=== PATIENT | female | born 1945 | race Caucasian/White ===

== ENCOUNTER 2016-10-03 09:00 | Emergency (ER) | payer MEDICARE, OTHER ==
[~2016-10-03 09:00] MED LIST: ACETAMINOPHEN-O1 TAB PO; AMARYL2 MG PO; AORACILLIN B500 MG; BACTRIM DS 8001 TA1 PO; ETODOLAC500 MG PO; GLYBURIDE MICRON3 MG PO; HYDROCODONE BIT1 T11 PO; LEVOTHROID0.125 MG PO; LOZOL1.25 MG PO; NIASPAN500 MG PO; OMEPRAZOLE20 M1 PO; PYRIDIUM200 M1 PO; QUINAPRIL10 MG PO; WARFARIN SOD5 MG PO
[2016-10-03 09:26] LABS: BILIRUBIN NEGATIVE (NEGATIVE); BLOOD NEGATIVE (NEGATIVE); CLARITY CLOUDY (CLEAR); COLOR YELLOW (YELLOW); GLUCOSE NEGATIVE (NEGATIVE); KETONE TRACE (NEGATIVE); LEUKO ESTERASE 2+ (NEGATIVE); NITRITE NEGATIVE (NEGATIVE); PROTEIN TRACE (NEGATIVE); SPECIFIC GRAVITY 1.025 (1.005-1.030); UROBILINOGEN 0.2 E.U./dl (0.2-1.0)
[2016-10-03 09:26] LABS: BASO % 0.5 % (0.0-1.0); EOS # 0.2 10*3/uL (0.0-0.4); EOS % 2.9 % (1.0-4.0); HEMATOCRIT 46.1 % (37.0-47.0); HEMOGLOBIN 14.8 g/dl (12.0-16.0); LYMPH # 2.2 10*3/uL (1.3-4.4); LYMPH % 30.2 % (27.0-41.0); MEAN CELL VOLUME 98.7 fl (81.0-99.0); MEAN CORPUSCULAR HGB 31.7 pg (27.0-31.0); MEAN CORPUSCULAR HGB CONC 32.1 g/dl (33.0-37.0); MEAN PLATELET VOLUME 10.9 fl (9.6-12.3); MONO # 0.7 10*3/uL (0.1-1.0); MONO % 9.8 % (3.0-9.0); NEUT # 4.2 10*3/uL (2.3-7.9); NEUT % 56.3 % (47.0-73.0); PLATELET COUNT AUTOMATED 256 10*3/uL (130-400); RED BLOOD COUNT 4.67 10*6/uL (4.10-5.10); WHITE BLOOD COUNT 7.4 10*3/uL (4.8-10.8)
[2016-10-03 09:32] LABS: BACTERIA 2+; WBC 31-40 wbc/hpf (0-5)
[2016-10-03 09:33] LABS: MUCOUS 1+; URINE REFLEX COMMENT YES (NO)
[2016-10-03 09:41] LABS: ALBUMIN 3.5 gm/dl (3.1-4.5); ALKALINE PHOSPHATASE 120 U/L (45-117); BILIRUBIN, TOTAL 0.5 mg/dl (0.2-1.0); BUN 16 mg/dl (7-24); CARBON DIOXIDE 30 mmol/L (21-32); CHLORIDE 108 mmol/L (98-107); EST GLOM FILT AFRICAN AMERICAN > 60 ml/min; GLUCOSE 101 mg/dL (65-99); POTASSIUM 3.8 mmol/L (3.5-5.1); SGOT/AST 19 IU/L (3-35); SGPT/ALT 28 U/L (12-78); SODIUM 146 mmol/L (136-145)
[2016-10-03] MEDS ORDERED: PYRIDIUM200 M1 PO (11:43)
[2016-10-03] MEDS ORDERED: BACTRIM DS 8001 TA1 PO (11:43)
[2016-10-03] MEDS ORDERED: HYDROCODONE BIT1 T11 PO (11:43)
== END 2016-10-03 11:40 | disposition home or self-care (01) ==
LOC: ED 09:00
PROVIDERS: Emergency Medicine
DX: N39.0 Urinary tract infection, site not specified (principal); Z88.0 Allergy status to penicillin; Z79.899 Other long term (current) drug therapy

== ENCOUNTER → 2017-07-28 | Day surgery (SDC) | payer MEDICARE, OTHER ==
--- NOTE | ~2017-07-28 | O ---
[place], [place] OPERATIVE NOTE NAME: HAN DIAZ UNIT #: [id number] ROOM: DOCTOR: KENRICK GUADARRAMA MD BIRTHDATE: [birth year] DOS: INDICATIONS: This is a 71-year-old patient who presented with reflux, dyspepsia, dysphagia, sensation of solid food distress in the upper pharynx area. ALLERGIES: No known medication. FAMILY HISTORY: Noncontributory. PAST SURGICAL HISTORY: Hysterectomy, mastectomy on right side, cholecystectomy, podiatric. PAST MEDICAL HISTORY: Diabetes, hypothyroidism, hypertension, breast CA. PROCEDURE: Today's procedure part of investigation is panendoscopy plus biopsy plus balloon dilation of esophagus. PREMEDICATION: Versed and Diprivan. SCOPE: Olympus forward-viewing gastroscope Q10 video. REPORT: After putting the patient in left lateral position and application of lubricant through the scope, the scope was introduced. Thereafter, under direct visualization, I advanced through the length of esophagus without difficulty. Gastric pouch was entered. Moderate size hiatal hernia seen. Gastric pouch was seen. Gastritis of chronic and acute was noticed. Duodenal bulb, second and third part within normal limits. Antral biopsy obtained a balloon size 18 was utilized and esophagus was dilated. Highest resistance was in the upper esophagus. The patient extubated, tolerated the procedure well. IMPRESSION: Chronic gastritis, status post biopsy, moderate size hiatal hernia, esophageal stricture, status post balloon dilation to size 18. We are going to reassess clinically to see if she is doing well with this management. The patient has been on omeprazole 20 mg daily. This is going to be increased to 20 mg b.i.d., Gaviscon as an antacid of choice. Thank you very much indeed for your kind referral. [place], [place] OPERATIVE NOTE NAME: HAN DIAZ UNIT #: [id number] ROOM: DOCTOR: KENRICK GUADARRAMA MD BIRTHDATE: [birth year] KENRICK GUADARRAMA MD CM:OPRECORD:OPERATIVE NOTE [id number] SOHAIL GUADARRAMA MD (TED) 07/28/17 182 interface
[2017-07-28 15:05] VITALS: BP 147/87
[2017-07-28 15:54] VITALS: BP 136/75
[2017-07-28 16:09] VITALS: BP 145/82
[2017-07-28 16:19] VITALS: BP 133/88
== END | disposition home or self-care (01) ==
LOC: SDC 07-22 13:15
DX: K29.50 Unspecified chronic gastritis without bleeding (principal); K44.9 Diaphragmatic hernia without obstruction or gangrene; K22.2 Esophageal obstruction; Z90.710 Acquired absence of both cervix and uterus; Z90.49 Acquired absence of other specified parts of digestive tract; E11.9 Type 2 diabetes mellitus without complications; E03.9 Hypothyroidism, unspecified; I10 Essential (primary) hypertension; Z85.3 Personal history of malignant neoplasm of breast; K21.9 Gastro-esophageal reflux disease without esophagitis; E78.00 Pure hypercholesterolemia, unspecified; Z83.3 Family history of diabetes mellitus

== ENCOUNTER 2017-10-02 14:17 | Emergency (ER) | payer MEDICARE, OTHER ==
[~2017-10-02] VITALS: Ht 160 cm; Wt 83.5 kg
[2017-10-02] MEDS ORDERED: PROTONIX TR40 M1 PO (14:24)
[2017-10-02 14:48] LABS: BILIRUBIN NEGATIVE (NEGATIVE); BLOOD NEGATIVE (NEGATIVE); CLARITY SL CLOUDY (CLEAR); COLOR YELLOW (YELLOW); GLUCOSE NEGATIVE (NEGATIVE); KETONE NEGATIVE (NEGATIVE); LEUKO ESTERASE 1+ (NEGATIVE); NITRITE NEGATIVE (NEGATIVE); PH 5.5 (5.0-9.0); SPECIFIC GRAVITY 1.025 (1.005-1.030); UROBILINOGEN 0.2 E.U./dl (0.2-1.0)
[2017-10-02 14:48] LABS: BASO # 0.1 10*3/uL (0.0-0.1); BASO % 0.7 % (0.0-1.0); EOS # 0.2 10*3/uL (0.0-0.4); EOS % 2.3 % (1.0-4.0); HEMATOCRIT 44.4 % (37.0-47.0); HEMOGLOBIN 14.8 g/dl (12.0-16.0); LYMPH # 2.3 10*3/uL (1.3-4.4); LYMPH % 31.1 % (27.0-41.0); MEAN CELL VOLUME 95.9 fl (81.0-99.0); MEAN CORPUSCULAR HGB CONC 33.3 g/dl (33.0-37.0); MEAN PLATELET VOLUME 11.4 fl (9.6-12.3); MONO # 0.6 10*3/uL (0.1-1.0); MONO % 8.1 % (3.0-9.0); NEUT # 4.2 10*3/uL (2.3-7.9); NEUT % 57.5 % (47.0-73.0); PLATELET COUNT AUTOMATED 219 10*3/uL (130-400); RED BLOOD COUNT 4.63 10*6/uL (4.10-5.10); RED CELL DISTRI WIDTH 12.9 % (0-14.5); WHITE BLOOD COUNT 7.3 10*3/uL (4.8-10.8)
[2017-10-02 15:04] LABS: ALBUMIN 3.5 gm/dl (3.1-4.5); ALKALINE PHOSPHATASE 125 U/L (45-117); BUN 18 mg/dl (7-24); CHLORIDE 109 mmol/L (98-107); LIPASE 79 U/L (73-393); POTASSIUM 4.3 mmol/L (3.5-5.1); SGOT/AST 23 IU/L (3-35); SGPT/ALT 34 U/L (12-78); SODIUM 143 mmol/L (136-145); TOTAL PROTEIN 6.9 gm/dL (6.4-8.2)
[2017-10-02 15:12] LABS: BACTERIA 1+; CALCIUM OXALATE CRYSTALS 2+; EPITHELIAL CELLS TNTC; RBC 0-2 rbc/hpf (0-2)
[2017-10-02] MEDS ORDERED: MACROBID100 M1 PO (15:19)
[2017-10-02] MEDS ORDERED: PYRIDIUM100 MG PO (15:19)
== END 2017-10-02 15:31 | disposition home or self-care (01) ==
LOC: ED 14:17
PROVIDERS: Nurse Practitioner Family
DX: N39.0 Urinary tract infection, site not specified (principal); Z90.89 Acquired absence of other organs; Z79.899 Other long term (current) drug therapy; Z90.710 Acquired absence of both cervix and uterus; Z88.0 Allergy status to penicillin

== ENCOUNTER → 2017-12-09 | Outpatient (CLI) | payer MEDICARE, OTHER ==
[~2017-12-09] MED LIST changes: +MACROBID100 M1 PO; +PROTONIX TR40 M1 PO; +PYRIDIUM100 MG PO
== END | disposition home or self-care (01) ==
LOC: US 07:20
DX: R19.00 Intra-abdominal and pelvic swelling, mass and lump, unspecified site (principal); R10.2 Pelvic and perineal pain; Z90.49 Acquired absence of other specified parts of digestive tract

== ENCOUNTER 2017-12-20 13:34 | Emergency (ER) | payer MEDICARE, OTHER ==
[~2017-12-20] VITALS: Wt 86.2 kg
[2017-12-20] MEDS ORDERED: MECLIZINE HCL12.5 MG PO ×2 (14:12→14:25)
== END 2017-12-20 14:15 | disposition home or self-care (01) ==
LOC: ED 13:34
DX: H81.10 Benign paroxysmal vertigo, unspecified ear (principal); E03.9 Hypothyroidism, unspecified; I10 Essential (primary) hypertension; E11.9 Type 2 diabetes mellitus without complications; Z90.89 Acquired absence of other organs; Z79.899 Other long term (current) drug therapy; Z88.0 Allergy status to penicillin; Z90.710 Acquired absence of both cervix and uterus; Z85.3 Personal history of malignant neoplasm of breast

== ENCOUNTER → 2020-08-04 | Outpatient (CLI) | payer MEDICARE, OTHER ==
[~2020-08-04] MED LIST changes: +MECLIZINE HCL12.5 MG PO
== END | disposition home or self-care (01) ==
LOC: COVID19 14:02
PROVIDERS: ATTEND Internal Medicine
DX: Z20.828 Contact with and (suspected) exposure to other viral communicable diseases (principal)

== ENCOUNTER 2025-07-09 11:06 | Emergency (ER) | payer MEDICARE, OTHER ==
[~2025-07-09] VITALS: Ht 160 cm; Wt 73.1 kg
[~2025-07-09 11:06] MED LIST changes: +AMLODIPINE BESYL5 MG PO; +DOCUSATE SODIU100 MG PO; +ELIQUIS5 M1 PO; +FAMOTIDINE40 MG PO; +LEVOFLOXACIN500 MG PO; +LEVOTHYROXINE75 MCG PO; +LIPITOR80 MG PO; +LISINOPRIL10 M1 PO; +PROZAC10 MG PO
[2025-07-09 11:45] LABS: BILIRUBIN Negative (Negative); BLOOD Trace-Lysed (Negative); CLARITY Cloudy (Clear); COLOR Yellow (Yellow); KETONE Trace (Negative); LEUKO ESTERASE 2+ (Negative); NITRITE Negative (Negative); PH 5.5 (4.5-8.0); SPECIFIC GRAVITY 1.025 (1.001-1.030); UROBILINOGEN 0.2 E.U./dl (0.0-1.0)
[2025-07-09 12:07] LABS: BACTERIA 1+; EPITHELIAL CELLS 21-30; MUCOUS 2+
[2025-07-09] MEDS ORDERED: MACROBID100 M1 PO (13:42)
== END 2025-07-09 13:45 | disposition home or self-care (01) ==
LOC: ED 11:06
PROVIDERS: Nurse Practitioner Family
DX: M17.11 Unilateral primary osteoarthritis, right knee (principal); M25.461 Effusion, right knee; N30.01 Acute cystitis with hematuria; I10 Essential (primary) hypertension; E11.9 Type 2 diabetes mellitus without complications; E78.00 Pure hypercholesterolemia, unspecified; Z90.710 Acquired absence of both cervix and uterus; Z98.890 Other specified postprocedural states; Z88.0 Allergy status to penicillin